=== PATIENT | male | born 1945 | race Caucasian/White ===

== ENCOUNTER 2020-07-18 05:30 | Day surgery (SDC) | payer OTHER ==
[2020-07-14 18:53] VITALS: BMI 38.5
[2020-07-18] MEDS ORDERED: ELECTROLYTE-148 SOLN 1,000 ML IV SCH (10:45)
[2020-07-18] MEDS ORDERED: MIDAZOLAM HCL 2 MG/2 ML SINGLE DOSE VIAL ONE (10:49)
[2020-07-18] MEDS ORDERED: PROPOFOL 20 ML ONE (10:53)
[2020-07-18] MEDS ORDERED: ceFAZolin SODIUM 1 GM VIAL IVPB ONE (10:55)
[2020-07-18] MEDS ORDERED: ONDANSETRON 4 MG/2 ML VIAL IVPUSH PRN (11:23)
[2020-07-18] MEDS ORDERED: LACTATED RINGERS SOLUTION 1,000 ML IV SCH (11:30)
[2020-07-18 12:10] VITALS: BP 121/58; PULSE 69; TEMP 97.8
== END 2020-07-18 13:00 | disposition home or self-care (01) ==
LOC: JASU-SURG 05:30
PROVIDERS: ATTEND Urology
PROC: 0T5B8ZZ Destruction of Bladder, Via Natural or Artificial Opening Endoscopic (ICD-10-PCS; principal; 2020-07-18 11:00)
DX: D30.3 Benign neoplasm of bladder (principal); Z85.51 Personal history of malignant neoplasm of bladder
CPT/HCPCS: 94760

== ENCOUNTER 2020-11-14 04:41 | Day surgery (SDC) | payer OTHER ==
[2020-11-09 17:43] VITALS: BMI 38.5
[2020-11-14] MEDS ORDERED: LIDOCAINE HCL 2% JELLY (5 ML/TUBE) ONE (06:53)
[2020-11-14] MEDS ORDERED: LIDOCAINE HCL/PF 2% SDV 5ML VIAL ONE (06:53)
[2020-11-14] MEDS ORDERED: PROPOFOL 20 ML ONE ×2 (10:29)
[2020-11-14] MEDS ORDERED: KETAMINE HCL 200 MG/20 ML VIAL ONE (10:29)
[2020-11-14] MEDS ORDERED: ELECTROLYTE-148 SOLN 1,000 ML IV SCH (10:30)
[2020-11-14] MEDS ORDERED: ceFAZolin SODIUM 1 GM VIAL IVPB ONE (10:41)
[2020-11-14] MEDS ORDERED: ACETAMINOPHEN INJECTION 100 ML IVPB ONE (10:45)
[2020-11-14] MEDS ORDERED: ONDANSETRON 4 MG/2 ML VIAL IVPUSH PRN (11:13)
[2020-11-14 14:21] VITALS: PULSE 82
[2020-11-14 14:28] VITALS: BP 127/70; TEMP 97.6
== END 2020-11-14 14:15 | disposition home or self-care (01) ==
LOC: JASU-SURG 04:41
PROVIDERS: ATTEND Urology
PROC: 0T5B8ZZ Destruction of Bladder, Via Natural or Artificial Opening Endoscopic (ICD-10-PCS; principal; 2020-11-14 10:00)
DX: N30.00 Acute cystitis without hematuria (principal)
CPT/HCPCS: 88305-TC; 94760; J0131

== ENCOUNTER 2021-02-13 04:12 | Day surgery (SDC) | payer OTHER ==
[2021-02-09 11:30] VITALS: BMI 37.6
[2021-02-13] MEDS ORDERED: ACETAMINOPHEN INJECTION 100 ML IVPB ONE (07:08)
[2021-02-13] MEDS ORDERED: PROPOFOL 20 ML ONE ×4 (07:18)
[2021-02-13] MEDS ORDERED: SUCCINYLCHOLINE CHLORIDE 200 MG/10 ML SYRINGE ONE (07:19)
[2021-02-13] MEDS ORDERED: ceFAZolin SODIUM 1 GM VIAL IVPB ONE (09:20)
[2021-02-13] MEDS ORDERED: ELECTROLYTE-148 SOLN 1,000 ML IV SCH (10:00)
[2021-02-13 13:05] VITALS: BP 119/66
[2021-02-13 13:14] VITALS: PULSE 80; TEMP 97.6
== END 2021-02-13 13:00 | disposition home or self-care (01) ==
LOC: JASU-SURG 04:12
PROVIDERS: ATTEND Urology
PROC: 0T5B8ZZ Destruction of Bladder, Via Natural or Artificial Opening Endoscopic (ICD-10-PCS; principal; 2021-02-13 09:00)
DX: C67.1 Malignant neoplasm of dome of bladder (principal)
CPT/HCPCS: 88305-TC; 94760; J0131